=== PATIENT | female | born 1955 | race Caucasian/White ===

== ENCOUNTER 2020-07-15 14:35 | Emergency (ER) | payer OTHER, SELFPAY ==
--- NOTE | ~2020-07-15 | XR_ITS ---
EXAMINATION: XR foot LT min 3V EXAM DATE: 07/15/2020 14:55 INDICATION: foot pain started this a.m.no trauma/pain bi-lateral mid foot. TECHNIQUE: Left foot dorsoplantar, lateral and oblique projections obtained and reviewed. Comparison is made to prior examination from 08/04/2018. FINDINGS: Left metatarsal bones unremarkable. There are no acute fractures or dislocations identifi ed. There is no subcutaneous gas. The soft tissue is unremarkable. There are no radiopaque foreig n bodies. IMPRESSION: 1. Unremarkable XR foot LT min 3V exam. Reviewed, dictated and finalized at location A. TACO
[2020-07-15 14:43] VITALS: BP 145/66; PULSE 77; RESP 18; TEMP 36.9; O2SAT 99
--- NOTE | 2020-07-15 14:47 | ED.LOWEXIN ---
HPI - Extremity Injury (Lower) General Chief Complaint: Extremity Injury, Lower Stated Complaint: left foot pain Time Seen by Provider: 07/15/20 14:47 Source: patient and RN notes reviewed History of Present Illness HPI Narrative: Patient is a 64-year-old female who presents the urgent care with complaints of left foot pain. Patient states that she walks daily and noticed that while she was walking this morning. Patient states that she did not walk last week due to having a pinched nerve in the left hip and thought maybe the pain was just from resuming her normal walking activity. Patient states that the pain initially started on the lateral aspect of the left foot and is now hurting on both sides of the foot. Patient denies of any known trauma, fall, injury. States that when the foot is elevated and iced the pain subsides. States that the weightbearing activity exacerbates the pain. Denies of any old injuries to the left lower extremity. No other acute complaints. No acute distress noted. Patient aware of the plan of care. Some parts of this dictation were generated by voice recognition software and may contain typographical and/or grammatical inaccuracies. Related Data Allergies Allergy/AdvReac Type Severity Reaction Status Date / Time codeine Allergy Unknown Vomiting Verified 07/15/20 15:06 nitrofurantoin Allergy Unknown Rash Verified 07/15/20 15:06 propoxyphene Allergy Unknown AGITATION Verified 07/15/20 15:06 Sulfa (Sulfonamide Allergy Unknown Rash Verified 07/15/20 15:06 Antibiotics) Decongestants Allergy Mild Unknown Uncoded 07/15/20 15:06 Review of Systems Review of Systems: Narrative: CONSTITUTIONAL: Denies fever, chills, or sweats. EYES: Denies visual changes, redness, or discharge. ENT: Denies rhinorrhea, congestion, sore throat, or otalgia. CARDIOVASCULAR: Denies chest pain, palpitations, or edema. RESPIRATORY: Denies cough or dyspnea. GASTROINTESTINAL: Denies abdominal pain, nausea, vomiting, or diarrhea. GENITOURINARY: Denies dysuria or hematuria. SKIN: Denies rash or itching. MUSCULOSKELETAL: Reports of left foot pain NEUROLOGIC: Denies headache, numbness, or weakness. All other systems reviewed are negative, except as documented in HPI. [facility] Past Medical History Medical History (Updated 07/15/20 @ 15:09 by GLEN Guaman) Colon cancer screening (~07/2019) Cologuard negative FH: diabetes mellitus Gastroesophageal reflux disease Sleep apnea Family History Family History (Updated 05/15/19 @ 09:47 by DOCTOR UNKNOWN) Father Diabetes mellitus Hypertension Family history of lung cancer Sibling Diabetes mellitus Grandparent Diabetes mellitus Mother Carcinoma of colon Other Family history of malignant neoplasm of breast Social History Social History Smoking status: Never smoker Alcohol intake: never Comments At the time of my signature, I reviewed and agree with the nursing past medical, surgical, social, and family history. There is no relevant family history pertinent to the patient complaint. Exam Narrative: Exam Narrative: GENERAL: This is a well-nourished, well-developed patient, in no apparent distress. HEAD: normocephalic, atraumatic. EYES: PERRL. Sclera clear/white. Vision is grossly intact. EARS: External ears normal NOSE: External nose normal with no obvious nasal discharge, nares without redness, no rhinorrhea. THROAT: Mucous membranes moist NECK: Neck supple SKIN: warm, intact with no suspicious lesions or rash, good texture and turgor. NEURO: awake, alert, and oriented to person, place and time. There were no obvious focal neurologic abnormalities. EXTREMITIES: No obvious deformity, edema, ecchymosis or erythema noted to the left lower extremity. Positive strong left pedal pulse with capillary refill less than 2 seconds. Range of motion to left lower extremity within normal limits. Pain exacerbated with weightbearing. Course Vital Signs Vital
== END 2020-07-15 15:14 | disposition home or self-care (01) ==
PROVIDERS: Emergency Provider Nurse Practitioner Family; PCP Family Medicine
DX: M79.672 Pain in left foot (principal); K21.9 Gastro-esophageal reflux disease without esophagitis; G47.30 Sleep apnea, unspecified
CPT/HCPCS: 73630; 99213; G0463

== ENCOUNTER 2020-08-26 09:04 | Outpatient (CLI) | payer OTHER, SELFPAY ==
--- NOTE | ~2020-08-26 | MM_ITS ---
EXAMINATION: MM screening donato BI w xena HISTORY: Screening TECHNIQUE: Craniocaudal and mediolateral oblique 3-D tomosynthesis images were obtained and synthetic 2-D images were generated. CAD analysis was submitted and interpreted. COMPARISON: Comparison to multiple prior studies sequentially, with oldest reviewed study dated 03/12. BREAST PARENCHYMAL COMPOSITION: There are scattered areas of fibroglandular density. FINDINGS: There is no evidence of suspicious mass, calcification, or architectural distortion to sugg est malignancy in either breast. There has been no suspicious interval change. IMPRESSION: 1. No mammographic evidence of malignancy. 2. Recommend routine screening mammography in one year. BI-RADS Category 1: Negative Reviewed, dictated and finalized at location A. ANCE EQUIPMENT WORKER
== END 2020-08-26 09:05 | disposition home or self-care (01) ==
PROVIDERS: PCP Family Medicine; Visit Provider Obstetrics & Gynecology
DX: Z12.31 Encounter for screening mammogram for malignant neoplasm of breast (principal)
CPT/HCPCS: 77063; 77067

== ENCOUNTER → 2020-09-30 11:08 | Outpatient (CLI) | payer OTHER, SELFPAY ==
--- NOTE | ~2020-09-30 | XR_ITS ---
XR thoracic spine 3V DATE: 09/30/2020 11:38 INDICATION: Back pain TECHNIQUE: Standing AP and lateral and swimmer views COMPARISON: None FINDINGS: There is bilateral reverse S shaped scoliosis of the thoracic spine. Osteopenia. No fracture or bone destruction is evident. The thoracic pedicles appear intact. No paraspinal soft t issue thickening. IMPRESSION: Prominent reverse S-shaped thoracic scoliosis Osteopenia Reviewed, dictated and finalized at location A. ISTRY SPECIALIST
--- NOTE | ~2020-09-30 | XR_ITS ---
XR_CERV2-3V_CR DATE: 09/30/2020 11:38 INDICATION: Neck pain TECHNIQUE: AP, open-mouth, odontoid and lateral views COMPARISON: 10/01/2008 cervical spine FINDINGS: There is straightening of the cervical spine. C1 and C2 are normally aligned and the odontoid process is intact. No fracture or dislocation or locked facet or prevertebral soft tissue swelling. No other significant abnormality. IMPRESSION: Straightening of the cervical spine Reviewed, dictated and finalized at Location A. Reviewed, dictated and finalized at location A. OGY NURSE
--- NOTE | ~2020-09-30 | XR_ITS ---
XR lumbar spine 2-3V DATE: 09/30/2020 11:38 INDICATION: Back pain TECHNIQUE: Standing AP, lateral and coned lateral lumbosacral views COMPARISON: 10/19/2016 lumbar spine FINDINGS: There is prominent rotatory levoscoliosis of the lumbar spine. Diffuse osteopenia No fracture or bone destruction is evident. There is prominent degenerative disc disease and spurring consistent with multilevel degenerative di sc disease, particularly at L1-2, L2-3, L3-4 and on the left at L4-5. The sacroiliac joints appear normal. IMPRESSION: Prominent rotatory levoscoliosis and severe multilevel degenerative disc disease Diffuse osteopenia Reviewed, dictated and finalized at location A. R&D ENGINEER
== END ==
PROVIDERS: PCP Family Medicine; Visit Provider Physician Assistant
DX: M85.88 Other specified disorders of bone density and structure, other site (principal); M51.36 Other intervertebral disc degeneration, lumbar region
CPT/HCPCS: 72040; 72072; 72100

== ENCOUNTER → 2021-12-01 14:56 | Outpatient (CLI) | payer OTHER, SELFPAY ==
--- NOTE | ~2021-12-01 | XR_ITS ---
EXAM: XR abdomen/kub 1V HISTORY: R10.9 - Unspecified abdominal pain COMPARISON: 01/19/2012. FINDINGS: Clear lung bases. Normal bowel gas pattern. Significant lateral and rotatory lumbar scolio sis. No abnormal abdominal calcifications. Pelvic phleboliths. IMPRESSION: No obstruction or ileus. Reviewed, dictated and finalized at location K. IMPRESSION: No obstruction or ileus.
== END ==
PROVIDERS: PCP Family Medicine; Visit Provider Physician Assistant
DX: R10.9 Unspecified abdominal pain (principal)
CPT/HCPCS: 74018

== ENCOUNTER 2021-12-09 08:18 | Outpatient (CLI) | payer OTHER, SELFPAY ==
--- NOTE | ~2021-12-09 | MM_ITS ---
EXAMINATION: MM screening donato BI w xena HISTORY: Screening mammogram TECHNIQUE: Craniocaudal and mediolateral oblique 3-D tomosynthesis images were obtained and synthetic 2-D images were generated. CAD analysis was submitted and interpreted. COMPARISON: 08/26/2020, 05/19/2019, 03/18/2018 bilateral screening mammogram examinations BREAST PARENCHYMAL COMPOSITION: There are scattered areas of fibroglandular density. FINDINGS: There is no evidence of suspicious mass, calcification, or architectural distortion to sugg est malignancy in either breast. There has been no suspicious interval change. IMPRESSION: 1. No mammographic evidence of malignancy. 2. Recommend routine screening mammography in one year. BI-RADS Category 1: Negative Reviewed, dictated and finalized at location A.
== END 2021-12-09 08:19 | disposition home or self-care (01) ==
LOC: ANHIMG 08:19
PROVIDERS: PCP Family Medicine; Visit Provider Obstetrics & Gynecology
DX: Z12.31 Encounter for screening mammogram for malignant neoplasm of breast (principal)
CPT/HCPCS: 77063; 77067

== ENCOUNTER → 2022-03-18 07:45 | Outpatient (CLI) | payer SELFPAY ==
--- NOTE | ~2022-03-18 | CT_ITS ---
EXAMINATION: CT abdomen pelvis w con DATE: 03/18/2022 08:30 INDICATION: Abdominal pain, back pain for 6 months. TECHNIQUE: Computed tomography (CT) of the abdomen and pelvis was performed with 100 CC Omnipaque 350 intravenous contrast. Automated exposure control and iterative reconstruction technique were employe d. Exam dose: 818.30 mGy-cm total exam DLP. COMPARISON: 12/01/2021 KUB FINDINGS: The lung bases are clear of infiltrate or consolidation. Heart size is within normal range. No pericardial or pleural effusion. Small sliding hiatal hernia. Approximately 4.1 cm and two 4-5 mm right hepatic cysts. The liver, gallbladder, bile ducts, spleen a nd pancreas are otherwise unremarkable. The gallbladder is present. No gallbladder wall thickening or pericholecystic fluid or fat stranding. No bile duct or pancreatic duct dilatation. Approximately 6 x 10 mm hypoattenuating right adrenal lesion, likely a small right adrenal adenoma. No renal space occupying mass lesion or urinary tract calculus or hydroureteronephrosis. The urinary bladder is unremarkable. There are multiple uterine fibroids, some with calcification. Adnexal areas and ovaries are unremarkable. Normal caliber of the abdominal aorta. No intraperitoneal or retroperitoneal or pelvic mass lesion or adenopathy or ascites. Small fat-containing umbilical hernia. Normal appendix. No bowel obstruction, bowel wall thickening, pneumatosis or intraperitoneal free air . Rotatory levoscoliosis and multilevel degenerative disc disease of the lumbar spine. No suspicious os teolytic or osteoblastic lesions are noted. IMPRESSION: Hepatic cysts Small sliding hiatal hernia Probable 6 x 10 mm right adrenal adenoma uterine fibroids Reviewed, dictated and finalized at Location A. Reviewed, dictated and finalized at location B.
[2022-03-24 10:32] LABS: Estimated Glomerular Filt Rate > 60
== END ==
PROVIDERS: PCP Family Medicine; Visit Provider Physician Assistant Medical
DX: R10.12 Left upper quadrant pain (principal); R19.7 Diarrhea, unspecified; K44.9 Diaphragmatic hernia without obstruction or gangrene; D35.01 Benign neoplasm of right adrenal gland; D25.9 Leiomyoma of uterus, unspecified
CPT/HCPCS: 36415; 74177; 82565; Q9967

== ENCOUNTER 2022-04-09 01:24 | Day surgery (SDC) | payer OTHER, SELFPAY ==
[2022-04-01 17:11] VITALS: BMI 32.7
--- NOTE | 2022-04-01 17:32 | PC.NURSE ---
Report to the Outpatient Waiting Room, entrance under the green pavilion located off [facility], at time 1130 on date 04/09/22. OR Time: 1330_. - You and your visitor will be asked a series of questions to screen for COVID 19 for your protection. - Only one visitor is allowed at this time. - The patient visitor is requested to leave or wait in car when not with patient. - A mask is required within the hospital. Patients may have clear liquids (water, carbonated beverages, clear teas, apple juice) until 3 hours prior to surgery with a maximum of 20 ounces. - No food from midnight until time of surgery - Infants may have breast milk until 4 hours before surgery, formula 6 hours prior to surgery. - Children will be allowed to drink immediately following surgery. If applicable, please bring a bottle or sippy cup to assist with drinking. Juice, water, soda, and popsicles are readily available. For infants on formula, please bring formula the day of surgery. Pacifiers are allowed. Take the following medications with a SIP of water the morning of surgery: n/a_ Medications to discontinue per physician _vitamins Date to take last dose__04/06/22 Please no make-up, nail stateless, hairspray, perfume, deodorant, or body powder the day of surgery. No jewelry (including any body piercings) or valuables the day of surgery, leave them at home. Please take a shower or bath the night before, or the morning of, surgery with an antibacterial soap. Wear comfortable, loose fitting clothing. Children are encouraged to wear pajamas. - Jewelry must be removed prior to entering the operating room. Rings and piercings that are not removed may be cut off. - The hospital will not accept responsibility for valuables. - Please leave all valuables, including medications, at home the day of surgery. If you are going home after surgery, a licensed coach tour driver must drive you home. - NO public transportation without another adult. - We recommend that an adult stay with you for 24 hours following discharge. - We also recommend that you do not drive, make important decision, drink alcoholic beverages, or take any drugs that were not prescribed by your health care provider for at least 24 hours after your discharge time. For Pediatric surgeries, we recommend two adults accompany the child home (only one inside the building at this time). Follow any additional instructions given to you from your surgeon. If you or anyone in your household have experienced Covid symptoms in the past week, please notify your surgeon or the nurse liaison at the phone number below for possible testing. Telephone instructions given to Henrietta Ramsey_and asked if any additional questions and then verbalized understanding. Patient advised to call surgeon office or pre surgery nurse liaison [phone] if any additional questions.
[2022-04-09 12:45] VITALS: BP 133/74; PULSE 67; RESP 16; TEMP 36.7; O2SAT 100
[2022-04-09] MEDS: LACTATED RINGERS 1,000 ML 30 ML IV CONT ×2 (13:05→15:30)
--- NOTE | 2022-04-09 13:43 | WPDANESEPPF ---
Anes - Initial Pre Proc Eval Procedure: Operation Date: 04/09/22 14:30 Proposed Procedures p Excision Left Upper Back Mass - Papi Randolph MD Date/Time: 04/09/22 13:43 Surgeon: Papi Randolph MD Pre Op Diagnosis: upper back mass Patient Data Age: 66 Gender: F Height: 1.52 m Weight: 77.3 kg Last Vital Signs Temp 36.7 C 04/09/22 12:45 Pulse 67 04/09/22 12:45 Resp 16 04/09/22 12:45 BP 133/74 04/09/22 12:45 Pulse Ox 100 04/09/22 12:45 O2 Del Method Room Air 04/09/22 12:45 Allergies Allergy/AdvReac Type Severity Reaction Status Date / Time codeine Allergy Unknown Vomiting Verified 04/09/22 12:36 nitrofurantoin Allergy Unknown Rash Verified 04/09/22 12:36 propoxyphene Allergy Unknown AGITATION Verified 04/09/22 12:36 Sulfa (Sulfonamide Allergy Unknown Rash Verified 04/09/22 12:36 Antibiotics) Home Medications Medication Instructions Recorded Confirmed Type famotidine 20 mg tablet (Pepcid) 20 mg PO BID #180 tabs 06/18/21 04/09/22 Rx calcium carb 300 mg-D3 800 1 tablet PO DAILY 11/17/21 04/09/22 History unit-mag ox 25 mg-copper plate printer 0.5 mg-leti-Zn tablet (Caltrate + D3 Plus Minerals) magnesium 250 mg tablet 250 mg PO DAILY 11/17/21 04/09/22 History multivit with 1 tablet PO DAILY 11/17/21 04/09/22 History jxbjngay-mbzq-RS-lutein 8 mg iron-400 mcg-300 mcg tablet (Centrum Silver Women) estradiol-norethindrone acet 0.5 1 tablet PO DAILY 03/10/22 04/09/22 History mg-0.1 mg tablet Patient hx anesthesia problems: none Family hx anesthesia problems: none Results Review: All pre-operative results and documents have been reviewed as part of the pre-operative evaluation. [facility] Past Medical History Medical History (Updated 04/09/22 @ 13:46 by Brett Lopez DO) Colon cancer screening (~07/2019) Cologuard negative Diarrhea Gastroesophageal reflux disease Headache Hot flashes Insomnia, unspecified Left upper quadrant abdominal pain Localized edema Mass of subcutaneous tissue of back Other fatigue Surgical History Surgical History H/O breast biopsy H/O section Family History Family History Father Diabetes mellitus Hypertension Family history of lung cancer Sibling Diabetes mellitus Carcinoma of colon Grandparent Diabetes mellitus Mother Carcinoma of colon Rheumatoid arthritis Grandparent Breast cancer Sibling Carcinoma of colon Diabetes mellitus Other Family history of malignant neoplasm of breast Social History Social History Smoking status: Never smoker Alcohol intake: never Substance use: never Substance use type: does not use Living arrangements: with family Gender identity (if verbalized by the patient): Female Sexual Orientation (if Verbalized by the Patient): Straight or Heterosexual Spiritual care concerns: No Anes - Eval Final PreProcedure Day of Procedure 04/09/22 13:43 Patient weight: obese Heart: regular rate and rhythm Lungs: clear to auscultation Airway: Mallampati scale class II Neurological: alert and oriented Last oral intake: >/= 8 hours ASA classification: II Emergent: no Anesthetic plan: proceed Anesthesia type and monitoring: general GIVS and standard monitoring Results Review: All pre-operative results and documents have been reviewed as part of the pre-operative evaluation. Informed Consent: The patient's anesthetic plan and its attendant risks and benefits were discussed with the patient/family/POA. Questions were solicited and answers provided to the satisfaction of the patient/family/POA.
--- NOTE | 2022-04-09 14:01 | WPDHPUPDATE1 ---
History and Physical Update Update Date/Time: 04/09/22 14:01 History and Physical has been reviewed, including an updated exam of the patient. There are NO changes in the patient's condition. Risks, benefits, and alternatives have been discussed and questions answered. Patient agrees to proceed with procedure.
[2022-04-09] MEDS: ceFAZolin 2 GM/D5W 50 ML 2 GM/50 ML BAG IVPB (14:33)
[2022-04-09] MEDS: BUPIVACAINE/EPINEPHRINE 0.25% 50 ML VIAL INFILTRATE (15:03)
[2022-04-09 15:30] VITALS: BP 128/61; PULSE 82; RESP 14; TEMP 36.4; O2SAT 100
--- NOTE | 2022-04-09 15:33 | P.OP_ITS ---
Procedure Note - Detailed Date of Procedure 04/09/22 Pre-op Diagnosis upper back mass Post-op Diagnosis Other (Skin lesion left upper back) Procedure Performed Excision 4 cm skin lesion of the back with 2 mm margins (4.4 cm excision); 15 cm layered closure Surgeon Papi Randolph MD Yard Warehouse Worker Chari CARRA, juancarlos bobby COKE DRAWER HAND Anesthesia General (G IV S) and Local (0.25% Marcaine with epinephrine) Indications Patient had a red skin mole on the left upper back which subsequently enlarged and then turned brown. It is in a position where it is occasionally painful and gets irritated by clothing. She is taken to surgery now for excision Findings Lesion measured 4 cm x 3 cm, excision was 15 cm in length. Lesion did not extend into the subcutaneous. Description of Procedure Patient was checked in the preoperative holding area. The area of the lesion was marked on the skin as well as the proposed incision. She was then taken to surgery and placed in right lateral decubitus position. The left upper back was prepped and draped. The area of the ellipse to excise the lesion was remarked on the skin. Local was infiltrated into the area of the anticipated excision and in the subcutaneous tissues. A thorough infiltration with local was carried out. I then excised the lesion along the lines that I had drawn previously. This included 2 mm of normal skin on each side of the lesion. We then dissected through the entire dermis and dissected and removed the lesion taking a small amount of subcutaneous with the specimen. The wound was then made hemostatic with the cautery. I then undermined the subcutaneous a both the upper and lower margin of the wound so that the wound could be closed with less tension. This was done with the cautery. Hemostasis was again achieved. I then closed the wound with subcutaneous interrupted 3-0 Vicryl suture followed by subcuticular interrupted 3-0 Vicryl suture. The skin was finally closed with a running 4-0 Monocryl skin suture. The wound was dressed with Exofin surgical adhesive. Patient was then awakened and taken to recovery in good condition. Sponge and needle counts were correct x2. Estimated Blood Loss -10 Drains No Packing No Pathology Yes (Skin lesion left upper back) Complications No immediate complications Condition Stable Disposition PACU [facility] Billing Surgery - Charge Forward: Surgery Billing (Excision 4 cm skin lesion of the back with 2 mm margins, 4.4 cm excision. 15 cm layered closure.)
[2022-04-09 15:45] VITALS: BP 111/70; PULSE 76; RESP 16; O2SAT 98
[2022-04-09 16:00] VITALS: BP 127/63; PULSE 66; RESP 16
[2022-04-09 16:30] VITALS: BP 120/70; PULSE 65; RESP 16
== END 2022-04-09 16:47 | disposition home or self-care (01) ==
PROVIDERS: PCP Family Medicine; Visit Provider Surgery
PROC: (CPT 64788; principal; 2022-04-09 14:30)
DX: D36.10 Benign neoplasm of peripheral nerves and autonomic nervous system, unspecified (principal); K21.9 Gastro-esophageal reflux disease without esophagitis; E66.9 Obesity, unspecified; Z68.33 Body mass index [BMI] 33.0-33.9, adult
CPT/HCPCS: 64788; 88304; 88342; J0131; J0690; J2250; J2405; J2704; J3010; J7120

== ENCOUNTER 2022-04-10 19:19 | Emergency (ER) | payer OTHER, SELFPAY ==
--- NOTE | 2022-04-10 19:24 | ED.GENADULT ---
HPI - General Adult General Chief complaint: Eye Problems Stated complaint: Bilateral Eye Time Seen by Provider: 04/10/22 19:24 History of Present Illness HPI narrative: Henrietta Corona is a 66 yo female with PMH GERD, whpo comes to express care 1 day post op for eye problem after excision of mass, L upper back. She had an ET tube placed and states has been coughing and is hoarse. She was told by the surgeon that she aspirated a little but it was not severe and is not complaining medication except for ketorolac patient came because she has what appears to be blood pooling in both eyes and she was concerned about what that was and if it was a complication of her surgery Related Data Home Medications Medication Instructions Recorded Confirmed calcium carb 300 mg-D3 800 1 tablet PO DAILY 11/17/21 04/10/22 unit-mag ox 25 mg-copying machine repairer 0.5 mg-leti-Zn tablet (Caltrate + D3 Plus Minerals) magnesium 250 mg tablet 250 mg PO DAILY 11/17/21 04/10/22 multivit with 1 tablet PO DAILY 11/17/21 04/10/22 gklibvfs-gisr-WG-lutein 8 mg iron-400 mcg-300 mcg tablet (Centrum Silver Women) estradiol-norethindrone acet 0.5 1 tablet PO DAILY 03/10/22 04/10/22 mg-0.1 mg tablet Allergies Allergy/AdvReac Type Severity Reaction Status Date / Time codeine Allergy Unknown Vomiting Verified 04/10/22 19:23 nitrofurantoin Allergy Unknown Rash Verified 04/10/22 19:23 propoxyphene Allergy Unknown AGITATION Verified 04/10/22 19:23 Sulfa (Sulfonamide Allergy Unknown Rash Verified 04/10/22 19:23 Antibiotics) Review of Systems Review of Systems: CONSTITUTIONAL: Denies fever, chills, sweats. EYES: Denies visual changes, redness bilateral sclera both eyes, discharge. ENT: Denies rhinorrhea, congestion, sore throat, otalgia. CARDIOVASCULAR: Denies chest pain, palpitations, edema. RESPIRATORY: Denies dyspnea, wheezing, cough GASTROINTESTINAL: Denies abdominal pain, nausea, vomiting, diarrhea. GENITOURINARY: Denies dysuria, hematuria, abnormal discharge SKIN: Denies rash or itching. NEUROLOGIC: Denies numbness, or focal weakness. PSYCHIATRIC: Denies anxiety or depression. [facility] Past Medical History Medical History Colon cancer screening (~07/2019) Cologuard negative Diarrhea Gastroesophageal reflux disease Headache Hot flashes Insomnia, unspecified Left upper quadrant abdominal pain Localized edema Mass of subcutaneous tissue of back Other fatigue Surgical History Surgical History H/O breast biopsy H/O section Family History Family History Father Diabetes mellitus Hypertension Family history of lung cancer Sibling Diabetes mellitus Carcinoma of colon Grandparent Diabetes mellitus Mother Carcinoma of colon Rheumatoid arthritis Grandparent Breast cancer Sibling Carcinoma of colon Diabetes mellitus Other Family history of malignant neoplasm of breast Social History Social History Smoking status: Never smoker Alcohol intake: never Substance use: never Substance use type: does not use Gender identity (if verbalized by the patient): Female Sexual Orientation (if Verbalized by the Patient): Straight or Heterosexual Spiritual care concerns: No Comments At time of signature, I agree with nursing past medical, surgical, social and family history. There is no relevant family history pertinent to the presenting complaint. Exam Narrative: GENERAL: This is a well-nourished, well-developed patient, in mild distress. HEAD: normocephalic, atraumatic. EYES: PERRL. Sclera clear/red lower sclera injection Vision is grossly intact. EARS: External ears normal, . Hearing grossly intact. NOSE: External nose normal without nasal discharge, nares without redness, no rhin
[2022-04-10 19:27] VITALS: BP 134/77; PULSE 73; RESP 18; TEMP 36.9; O2SAT 98
== END 2022-04-10 19:36 | disposition home or self-care (01) ==
PROVIDERS: Emergency Provider Nurse Practitioner; PCP Family Medicine
DX: H11.33 Conjunctival hemorrhage, bilateral (principal); K21.9 Gastro-esophageal reflux disease without esophagitis
CPT/HCPCS: 99212; G0463

== ENCOUNTER → 2022-10-05 11:38 | Outpatient (CLI) | payer MEDICARE, OTHER, SELFPAY ==
--- NOTE | ~2022-10-05 | CT_ITS ---
Non-contrast CT scan of the Abdomen Clinical indication: Adrenal adenoma Technique: 5 mm axial scans were obtained through the abdomen without intravenous or oral contrast. Dose reduction technique was used on this scan by utilizing automated exposure control and iterative reconstruction technique. The dose-length product (DLP) was 433.95 mGy-cm. COMPARISON: 03/18/2022 Findings: Images through the lung bases reveal no abnormalities. Stable hepatic cyst. The spleen, pancreas, gallbladder, kidneys, and adrenal gland appear normal. 1 c m low-density right adrenal nodule is consistent with adenoma. There is no aortic aneurysm. Visualized bowel loops are unremarkable. No ascites. Impression: 1 cm right adrenal adenoma. Stable hepatic cyst. Reviewed, dictated and finalized at location . [employer]TENANCE Impression: 1 cm right adrenal adenoma. Stable hepatic cyst.
== END ==
PROVIDERS: PCP Family Medicine; Visit Provider Family Medicine
DX: D35.01 Benign neoplasm of right adrenal gland (principal); K76.89 Other specified diseases of liver
CPT/HCPCS: 74150

== ENCOUNTER → 2023-01-21 14:21 | Outpatient (CLI) | payer MEDICARE, OTHER, SELFPAY ==
--- NOTE | ~2023-01-21 | XR_ITS ---
EXAMINATION: XR chest 2V 01/21/2023 14:47 INDICATION: Shortness of breath PROCEDURE: 2 view chest COMPARISON: 10/19/2016 FINDINGS: The lungs are clear. The cardiomediastinal silhouette is within normal limits. There are no pleural effusions. There is no pneumothorax suspected. There is scoliosis. IMPRESSION: 1: NO ACUTE CARDIOPULMONARY DISEASE. Reviewed, dictated and finalized at location L.
--- NOTE | ~2023-01-21 | XR_ITS ---
XR hip RT min 3V w AP pelvis 01/21/2023 14:47 Indication: Hip pain. Procedure: AP pelvis and 2 views right hip Comparison: 09/14/2016 Findings: Pelvic rings are intact. There is lower lumbar spondylosis. Sacral foramen are symmetric. T here is mild osteoarthritis of the hips. No soft tissue abnormality. No foreign bodies. Impression: 1: Mild osteoarthritis of the hips. Reviewed, dictated and finalized at location L. Impression: 1: Mild osteoarthritis of the hips.
== END ==
PROVIDERS: PCP Family Medicine; Visit Provider Physician Assistant
DX: R06.02 Shortness of breath (principal); M25.559 Pain in unspecified hip; M16.0 Bilateral primary osteoarthritis of hip
CPT/HCPCS: 71046; 73502

== ENCOUNTER 2023-02-02 12:41 | Emergency (ER) | payer MEDICARE, OTHER, SELFPAY ==
--- NOTE | ~2023-02-02 | XR_ITS ---
EXAMINATION: XR finger 4th LT min 2V DATE: 02/02/2023 13:06 INDICATION: Left hand fourth digit pain. Fall. TECHNIQUE: 4 views of left hand fourth digit were obtained. COMPARISON: None. FINDINGS: Bone alignment is normal. No fracture. There is mild osteoarthritis of fourth proximal inte rphalangeal joint. There is soft tissue swelling around fourth proximal interphalangeal joint. IMPRESSION: 1. No fracture. Reviewed, dictated and finalized at location A. IMPRESSION: 1. No fracture.
--- NOTE | 2023-02-02 12:47 | ED.UPPEXIN ---
HPI - Extremity Injury (Upper) General Chief Complaint: Extremity Injury, Upper Stated Complaint: fall/finger injury Time Seen by Provider: 02/02/23 12:47 Source: patient Mode of arrival: ambulatory Limitations: no limitations History of Present Illness HPI narrative: Patient is a 67 year old female that fell yesterday onto obtained. Has been icing and elevating with no relief. Patient states left ring finger has been swelling and had to go have ring removed. patient states she had immediate relief pain and pressure when rings were removed. patient also reports mild numbness and tingling to tip of finger. Denies the finger feeling cold. Still able to move finger but decreased range of motion. Denies hitting head on fall Related Data Home Medications Medication Instructions Recorded Confirmed estradiol-norethindrone acet 0.5 1 tablet PO DAILY 03/10/22 02/02/23 mg-0.1 mg tablet Allergies Allergy/AdvReac Type Severity Reaction Status Date / Time codeine AdvReac Intermediate Vomiting Verified 02/02/23 13:10 propoxyphene AdvReac Intermediate AGITATION Verified 02/02/23 13:10 nitrofurantoin AdvReac Mild Rash Verified 02/02/23 13:10 Sulfa (Sulfonamide AdvReac Mild Rash Verified 02/02/23 13:10 Antibiotics) Review of Systems Review of Systems: All systems reviewed & are unremarkable except as noted in HPI and below Constitutional: Constitutional: Denies body ache(s), Denies chills, Denies fatigue, Denies fever(s), Denies headache(s), Denies malaise and Denies weakness Eyes: Eyes: Denies blurry vision, Denies irritation and Denies loss of vision ENT: Denies otalgia, Denies headache(s), Denies nasal discharge, Denies sinus pain and Denies sore throat Cardiovascular: Cardiovascular: Denies chest pain, Denies irregular heart rhythm and Denies dyspnea Respiratory: Respiratory: Denies dyspnea Gastrointestinal: Gastrointestinal: Denies abdominal pain, Denies melena, Denies hematochezia, Denies diarrhea, Denies nausea and Denies vomiting Musculoskeletal: Musculoskeletal: Denies back pain, Denies myalgias, Reports arthralgias and Reports joint swelling Integumentary/Breasts: Skin/Breast: Denies pruritus and Denies rash Neurologic: Denies headache(s), Denies loss of vision and Denies weakness Psychiatric: Psychiatric: Reports no additional psychiatric complaints Endocrine: Endocrine: Denies fatigue PMFSH Past Medical History Medical History Colon cancer screening (~07/2019) Cologuard negative Diarrhea Early satiety Epigastric pain Family history of colon cancer Gastroesophageal reflux disease GERD (gastroesophageal reflux disease) Headache Hiatal hernia Hiatal hernia Hot flashes Insomnia, unspecified Left upper quadrant abdominal pain Localized edema Mass of subcutaneous tissue of back Other fatigue Personal history of colonic polyps Surgical History Surgical History H/O breast biopsy H/O section History of surgical removal of skin lesion Excision 4 cm skin lesion of the back with 2 mm margins (4.4 cm excision); 15 cm layered closure 04/09/22 Family History Family History Father Diabetes mellitus Hypertension Family history of lung cancer Sibling Diabetes mellitus Carcinoma of colon Grandparent Diabetes mellitus Mother Carcinoma of colon Rheumatoid arthritis Grandparent Breast cancer Sibling Carcinoma of colon Diabetes mellitus Other Family history of malignant neoplasm of breast Social History Social History Smoking status: Never smoker Alcohol intake: never Substance use: never Substance use type: does not use Living arrangements: with family Occupation/Education: retired Gender identity (if verbalized by the patien
[2023-02-02 12:55] VITALS: BP 149/73; PULSE 77; RESP 16; TEMP 36.4; O2SAT 100
== END 2023-02-02 13:34 | disposition home or self-care (01) ==
PROVIDERS: Emergency Provider Nurse Practitioner Family; PCP Family Medicine
DX: S63.615A Unspecified sprain of left ring finger, initial encounter (principal); X58.XXXA Exposure to other specified factors, initial encounter; K21.9 Gastro-esophageal reflux disease without esophagitis
CPT/HCPCS: 73140; 99213; G0463

== ENCOUNTER 2023-03-23 01:29 | Day surgery (SDC) | payer MEDICARE, OTHER, SELFPAY ==
[2022-12-08 08:52] VITALS: BMI 33.3
[2023-03-10 14:25] VITALS: BMI 33.3
[2023-03-23 06:20] VITALS: BP 148/81; PULSE 66; RESP 20; TEMP 36.3; O2SAT 100
[2023-03-23] MEDS: LACTATED RINGERS 1,000 ML 150 ML IV CONT (06:32)
--- NOTE | 2023-03-23 07:19 | WPDANESEPPF ---
Anes - Initial Pre Proc Eval Procedure: Operation Date: 03/23/23 07:30 Proposed Procedures p Esophagogastroduodenoscopy & Colonoscopy - Chon Gallardo MD Date/Time: 03/23/23 07:19 Surgeon: Chon Gallardo MD Pre Op Diagnosis: GERD, diaphragmatic Hernia w/o obstruction Patient Data Age: 67 Gender: F Height: 1.52 m Weight: 78.8 kg Last Vital Signs Temp 97.4 F L 03/23/23 06:20 Pulse 66 03/23/23 06:20 Resp 20 03/23/23 06:20 BP 148/81 H 03/23/23 06:20 Pulse Ox 100 03/23/23 06:20 O2 Del Method Room Air 03/23/23 06:20 Allergies Allergy/AdvReac Type Severity Reaction Status Date / Time codeine AdvReac Intermediate Vomiting Verified 03/23/23 06:19 propoxyphene AdvReac Intermediate AGITATION Verified 03/23/23 06:19 nitrofurantoin AdvReac Mild Rash Verified 03/23/23 06:19 Sulfa (Sulfonamide AdvReac Mild Rash Verified 03/23/23 06:19 Antibiotics) Home Medications Medication Instructions Recorded Confirmed Type estradiol-norethindrone acet 0.5 1 tablet PO DAILY 03/10/22 03/10/23 History mg-0.1 mg tablet omeprazole 40 mg capsule,delayed 40 mg PO DAILY #90 caps 11/26/22 03/10/23 Rx release Patient hx anesthesia problems: none Family hx anesthesia problems: none Results Review: All pre-operative results and documents have been reviewed as part of the pre-operative evaluation. [facility] Past Medical History Medical History Colon cancer screening (~07/2019) Cologuard negative Diarrhea Early satiety Epigastric pain Family history of colon cancer Gastroesophageal reflux disease GERD (gastroesophageal reflux disease) Headache Hiatal hernia Hiatal hernia Hot flashes Insomnia, unspecified Left upper quadrant abdominal pain Localized edema Mass of subcutaneous tissue of back Other fatigue Personal history of colonic polyps Surgical History Surgical History H/O breast biopsy H/O section History of surgical removal of skin lesion Excision 4 cm skin lesion of the back with 2 mm margins (4.4 cm excision); 15 cm layered closure 04/09/22 Family History Family History (Reviewed 02/11/23 @ 09:55 by Michelle Colunga [facility]) Father Diabetes mellitus Hypertension Family history of lung cancer Sibling Diabetes mellitus Carcinoma of colon Grandparent Diabetes mellitus Mother Carcinoma of colon Rheumatoid arthritis Grandparent Breast cancer Sibling Carcinoma of colon Diabetes mellitus Other Family history of malignant neoplasm of breast Social History Social History (Reviewed 02/11/23 @ 09:55 by Michelle Colunga [facility]) Smoking status: Never smoker Alcohol intake: never Substance use: never Substance use type: does not use Living arrangements: with family Occupation/Education: retired Gender identity (if verbalized by the patient): Female Sexual Orientation (if Verbalized by the Patient): Straight or Heterosexual Spiritual care concerns: No Anes - Eval Final PreProcedure Day of Procedure 03/23/23 07:19 Patient weight: obese Heart: regular rate and rhythm Lungs: clear to auscultation Neurological: alert and oriented Last oral intake: >/= 8 hours ASA classification: II Emergent: no Anesthetic plan: proceed Anesthesia type and monitoring: general GIVS and standard monitoring Results Review: All pre-operative results and documents have been reviewed as part of the pre-operative evaluation. Informed Consent: The patient's anesthetic plan and its attendant risks and benefits were discussed with the patient/family/POA. Questions were solicited and answers provided to the satisfaction of the patient/family/POA.
--- NOTE | 2023-03-23 07:32 | PM.HPGS ---
History of Present Illness History of Present Illness Consent: Risks, benefits, and alternatives have been discussed and questions answered. Patient agrees to proceed with procedure. Chief complaint: GERD, diaphragmatic Hernia w/o obstruction Narrative: Henrietta Ramsey is a 67 year old female here for egd and colonoscopy, h/o longstanding gerd better after using omeprazole 40mg daily instead of pepcid but if she eats too much then will get symptomatic, also imaging in the past showed sliding hiatal hernia and never had EGD. Had colonoscopy with polyp removed in 2006, family history of colon cancer (mother and sister), negative cologuard 2019 Review of Systems Constitutional: Constitutional: Denies headache(s) and Denies weakness Eyes: Eyes: Denies blurry vision ENT: Reports Normal hearing present, Denies headache(s) and Denies neck pain Cardiovascular: Cardiovascular: Denies chest pain and Denies dyspnea Respiratory: Respiratory: Denies dyspnea Gastrointestinal: Gastrointestinal: Reports no additional gastrointestinal complaints Genitourinary: Genitourinary: Denies dysuria Musculoskeletal: Musculoskeletal: Denies neck pain Integumentary/Breasts: Skin/Breast: Denies dry skin Neurologic: Reports Normal hearing present, Denies headache(s) and Denies weakness Psychiatric: Psychiatric: Denies anxiety Endocrine: Endocrine: Denies change in body appearance Hematologic/Lymphatic: Hematologic/Lymphatic: Denies easy bleeding Allergic/Immunologic: Allergic/Immunologic: Denies urticaria PMFSH Past Medical History Medical History Colon cancer screening (~07/2019) Cologuard negative Diarrhea Early satiety Epigastric pain Family history of colon cancer Gastroesophageal reflux disease GERD (gastroesophageal reflux disease) Headache Hiatal hernia Hiatal hernia Hot flashes Insomnia, unspecified Left upper quadrant abdominal pain Localized edema Mass of subcutaneous tissue of back Other fatigue Personal history of colonic polyps Surgical History Surgical History H/O breast biopsy H/O section History of surgical removal of skin lesion Excision 4 cm skin lesion of the back with 2 mm margins (4.4 cm excision); 15 cm layered closure 04/09/22 Family History Family History Father Diabetes mellitus Hypertension Family history of lung cancer Sibling Diabetes mellitus Carcinoma of colon Grandparent Diabetes mellitus Mother Carcinoma of colon Rheumatoid arthritis Grandparent Breast cancer Sibling Carcinoma of colon Diabetes mellitus Other Family history of malignant neoplasm of breast Social History Social History Smoking status: Never smoker Alcohol intake: never Substance use: never Substance use type: does not use Living arrangements: with family Occupation/Education: retired Gender identity (if verbalized by the patient): Female Sexual Orientation (if Verbalized by the Patient): Straight or Heterosexual Spiritual care concerns: No Meds Home Medications and Allergies Home Medications Medication Instructions Recorded Confirmed Type estradiol-norethindrone acet 0.5 1 tablet PO DAILY 03/10/22 03/10/23 History mg-0.1 mg tablet omeprazole 40 mg capsule,delayed 40 mg PO DAILY #90 caps 11/26/22 03/10/23 Rx release Allergies Allergy/AdvReac Type Severity Reaction Status Date / Time codeine AdvReac Intermediate Vomiting Verified 03/23/23 06:19 propoxyphene AdvReac Intermediate AGITATION Verified 03/23/23 06:19 nitrofurantoin AdvReac Mild Rash Verified 03/23/23 06:19 Sulfa (Sulfonamide AdvReac Mild Rash Verified 03/23/23 06:19 Antibiotics) Vital Signs Vital Signs - 24 hr 03/23/23 06:20 Temperature 9
--- NOTE | 2023-03-23 07:48 | SUR.OPER ---
EGD ended 742 colonoscopy started 747
[2023-03-23 08:06] VITALS: BP 112/41; PULSE 67; RESP 19; O2SAT 99
[2023-03-23 08:21] VITALS: BP 113/65; PULSE 65; RESP 19; O2SAT 98
[2023-03-23 08:25] VITALS: BP 120/59; PULSE 60; RESP 15; O2SAT 98
== END 2023-03-23 08:34 | disposition home or self-care (01) ==
PROVIDERS: PCP Family Medicine; Visit Provider Internal Medicine Gastroenterology
PROC: 0DJ08ZZ Inspection of Upper Intestinal Tract, Via Natural or Artificial Opening Endoscopic (ICD-10-PCS; CPT 43235; principal; 2023-03-23 07:30)
DX: Z12.11 Encounter for screening for malignant neoplasm of colon (principal); D12.5 Benign neoplasm of sigmoid colon; K62.1 Rectal polyp; K64.8 Other hemorrhoids; Z80.0 Family history of malignant neoplasm of digestive organs; K22.70 Barrett's esophagus without dysplasia; K44.9 Diaphragmatic hernia without obstruction or gangrene; K21.9 Gastro-esophageal reflux disease without esophagitis; E66.9 Obesity, unspecified; Z68.33 Body mass index [BMI] 33.0-33.9, adult
CPT/HCPCS: 45380; 45385; 43239; 88305; J2704; J7120

== ENCOUNTER 2023-05-11 08:08 | Outpatient (CLI) | payer MEDICARE, OTHER, SELFPAY ==
--- NOTE | ~2023-05-11 | MM_ITS ---
EXAMINATION: MM screening donato BI w xena HISTORY: Screening mammogram TECHNIQUE: Craniocaudal and mediolateral oblique 3-D tomosynthesis images were obtained and synthetic 2-D images were generated. CAD analysis was submitted and interpreted. COMPARISON: 12/09/2021, 08/26/2020 BREAST PARENCHYMAL COMPOSITION:There are scattered areas of fibroglandular density. FINDINGS: No suspicious mass, calcification, or architectural distortion are identified in either leann ast to suggest malignancy. There has been no suspicious interval change. IMPRESSION: No mammographic evidence of malignancy. Recommend routine screening mammography in one year. BI-RADS Category 1: Negative Reviewed, dictated and finalized at location .
== END 2023-05-11 08:09 | disposition home or self-care (01) ==
PROVIDERS: PCP Family Medicine; Visit Provider Obstetrics & Gynecology
DX: Z12.31 Encounter for screening mammogram for malignant neoplasm of breast (principal)
CPT/HCPCS: 77063; 77067

== ENCOUNTER → 2023-06-10 14:58 | Outpatient (CLI) | payer MEDICARE, OTHER, SELFPAY ==
--- NOTE | ~2023-06-10 | MR_ITS ---
EXAMINATION: MR hip RT wo con DATE: 06/10/2023 15:49 INDICATION: Right hip pain. TECHNIQUE: Magnetic resonance imaging (MRI) of the right hip was performed without intravenous contra st. COMPARISON: Right hip radiographs 05/12/2023 FINDINGS: Bones/cartilage: There is lumbar levoscoliosis and moderate spondylosis. No fracture. The femoral head/neck morphologi es are normal. There is mild osteoarthritis of the hips. Small [id number] images of right hip demo nstrate partial-thickness cartilage loss and tiny osteophytes. Labrum: There is a tear of the right acetabular labrum. Fluid: There is no hip joint effusion. There is mild bilateral trochanteric bursitis. Soft tissues: There is mild right gluteus minimus tendinopathy. The gluteus medius tendon is normal. Left gluteus m inimus tendon is normal. There is mild left gluteus medius tendinopathy. There is mild tendinopathy o f the hamstring origins bilaterally. The iliopsoas tendons are normal. IMPRESSION: 1. Mild osteoarthritis of the hips. Reviewed, dictated and finalized at location A.
== END ==
PROVIDERS: PCP Family Medicine; Visit Provider Orthopaedic Surgery
DX: M16.0 Bilateral primary osteoarthritis of hip (principal)
CPT/HCPCS: 73721

== ENCOUNTER 2023-09-05 22:24 | Emergency (ER) | payer MEDICARE, OTHER, SELFPAY ==
--- NOTE | ~2023-09-05 | CT_ITS ---
Non-contrast Head CT History: Headache Technique: Axial non-contrast imaging of the brain was performed. Dose reduction technique was used on this scan by utilizing automated exposure control and iterative reconstruction technique. The dose -length product (DLP) was 605.33 mGy-cm. Findings: There is no evidence of intracranial hemorrhage, mass lesion, or acute infarct. Brain par enchyma appears normal. The ventricles and subarachnoid spaces are normal in size. The calvarium ap pears normal. The visualized paranasal sinuses and mastoid air cells are clear. Impression: No significant abnormality seen. Reviewed, dictated and finalized at location . [employer] Impression: No significant abnormality seen.
[2023-09-05 22:29] VITALS: BP 168/74; PULSE 73; RESP 14; TEMP 36.4; O2SAT 99
[2023-09-06] VITALS (16 sets, daily range): BP systolic 129–147; BP diastolic 70–86; PULSE 57–82; RESP 11–24; O2SAT 96–100
[2023-09-06 02:06] LABS: Basophils Percent Auto 0.6 % (0.2-1.2); Eosinophils Absolute Auto 0.1 K/mm3 (0-0.3); Eosinophils Percent Auto 1.5 % (0-4.4); Hematocrit 42.7 % (37.0-47.0); Hemoglobin 13.9 g/dL (12.0-15.0); Immature Granulocyte Absolute 0.02 K/mm3 (0.00-0.031); Immature Granulocyte Percent A 0.3 % (0-0.5); Lymphocytes Absolute Auto 1.77 K/mm3 (0.9-3.2); Mean Corpuscular HGB Conc 32.6 g/dl (32-36); Mean Platelet Volume 10.5 fl (7.4-10.4); Monocytes Absolute Auto 0.4 K/mm3 (0.1-0.6); Monocytes Percent Auto 6.6 % (2.6-8.5); Neutrophils Absolute Auto 4.2 K/mm3 (1.3-6.7); Platelet Count Result 253 k/mm3 (150-375); Red Blood Count 4.64 M/mm3 (4.2-5.4); Red Cell Distribution Width 12.4 % (11.5-14.5); White Blood Count 6.6 K/mm3 (4.5-10.0)
[2023-09-06 02:17] LABS: Alanine Aminotransferase 22 U/L (6-35); Albumin Level 3.9 g/dL (3.5-5.1); Alkaline Phosphatase 60 U/L (38-126); Anion Gap 8 mmol/L (8-16); Aspartate Amino Transferase 23 U/L (14-36); Bilirubin,Total 0.7 mg/dL (0.2-1.3); Blood Urea Nitrogen 15 mg/dL (7-17); Calcium 9.8 mg/dL (8.4-10.2); Carbon Dioxide 24 mmol/L (22-30); Chloride 107 mmol/L (98-107); Estimated CRCL calculation 64 ml/min; Estimated Glomerular Filt Rate > 60; Glucose 116 mg/dL (65-110); Sodium 139 mmol/L (137-145)
[2023-09-06] MEDS: KETOROLAC 30 MG/ML VIAL (*BKC) 15 MG IV PUSH (03:20)
[2023-09-06] MEDS: diphenhydrAMINE HCl INJ 50 MG/ML VIAL IV PUSH (03:20)
[2023-09-06] MEDS: PROCHLORPERAZINE EDISYLATE 10 MG/2 ML VIAL IV PUSH (03:20)
[2023-09-06] MEDS: SODIUM CHLORIDE 0.9% IV 1,000 ML 999 ML IV CONT (03:20)
[2023-09-06] MEDS: diphenhydrAMINE HCl INJ 50 MG/ML VIAL (04:08)
--- NOTE | 2023-09-06 04:10 | PC.NURSE ---
CT CALLED THIS RN TO INFORM RN THAT PT WAS HAVING A REACTION TO WHATEVER MEDS SHE WAS GIVEN STATED BY THE PT. THIS RN ASSESSED PT WHEN PT WAS BROUGHT BACK TO THE ROOM. PT STATED HER SYMPTOMS WERE THE ROOM IS SPINNING, I AM FEELING RESTLESS, AND I AM HAVING TINGLING IN MY TONGUE . THIS RN MADE EDP DR. FERRELL AWARE OF PT SYMPTOMS. EDP DR. FERRELL ASSESSED PT AND VERBALLY ORDERED BENADRYL IV 25MG FOR PT. THIS RN USED CLOSED LOOP COMMUNICATION TO VERIFY ROUTE/ DOSE/ MEDICATION/ AND PT WITH EDP. EDP CONFIRMED.
--- NOTE | 2023-09-06 04:13 | PC.NURSE ---
Addendum entered by Rosita Garcia RN 09/06/23 04:14: PT WAS NOTED TO NOT HAVE ANY FACIAL/ TONGUE SWELLING, DIFFICULTY BREATHING, PULSE OX WAS 98%, PT WAS AO X 4 AND ABLE TO SPEAK CLEAR AND CONCISE SENTENCES. Original Note: THIS RN REASSESSED PT AFTER PT STATED SHE WAS HAVING A REACTION TO WHATEVER MEDS WERE GIVEN DURING HER CT SCAN. PT STATED SHE WAS FEELING BETTER BUT STILL FELT SLIGHTLY ANXIOUS .
--- NOTE | 2023-09-06 04:42 | ED.GENADULT ---
HPI - General Adult General Chief complaint: Headache Stated complaint: headache Time Seen by Provider: 09/06/23 03:01 History of Present Illness HPI narrative: Patient is a 68-year-old female presents emergency department with chief complaint of headache. Patient reports this afternoon she started having pain in the occipital region of her scalp. The patient reports her blood pressure was elevated in the 170s at home and patient reports that she normally does not have high blood pressure the patient denies visual changes denies focal or neurological deficits does report she had COVID over the . Related Data Home Medications Medication Instructions Recorded Confirmed estradiol-norethindrone acet 0.5 1 tablet PO DAILY 03/10/22 06/25/23 mg-0.1 mg tablet Allergies Allergy/AdvReac Type Severity Reaction Status Date / Time codeine AdvReac Intermediate Vomiting Verified 09/06/23 01:52 propoxyphene AdvReac Intermediate AGITATION Verified 09/06/23 01:52 nitrofurantoin AdvReac Mild Rash Verified 09/06/23 01:52 Sulfa (Sulfonamide AdvReac Mild Rash Verified 09/06/23 01:52 Antibiotics) Review of Systems Review of Systems: A 10 system review of systems was completed on the patient and is negative except for what is stated in the HPI. Nursing and ancillary documentation was reviewed. [facility] Past Medical History Medical History Colon cancer screening (~07/2019) Cologuard negative Diarrhea Early satiety Epigastric pain Family history of colon cancer Gastroesophageal reflux disease GERD (gastroesophageal reflux disease) Headache Hiatal hernia Hiatal hernia Hot flashes Insomnia, unspecified Left upper quadrant abdominal pain Localized edema Mass of subcutaneous tissue of back Other fatigue Personal history of colonic polyps Surgical History Surgical History H/O breast biopsy H/O section History of surgical removal of skin lesion Excision 4 cm skin lesion of the back with 2 mm margins (4.4 cm excision); 15 cm layered closure 04/09/22 Family History Family History Father Diabetes mellitus Hypertension Family history of lung cancer Sibling Diabetes mellitus Carcinoma of colon Grandparent Diabetes mellitus Mother Carcinoma of colon Rheumatoid arthritis Grandparent Breast cancer Sibling Carcinoma of colon Diabetes mellitus Other Family history of malignant neoplasm of breast Social History Social History Smoking status: Never smoker Second hand tobacco smoke exposure: No Alcohol intake: never Substance use: never Substance use type: does not use Current Housing: Decline to Answer Concerned About Future Housing: Decline to Answer Difficulty Paying Gas/Electric Bills: Decline to Answer Difficulty Paying for Meds: Decline to Answer Currently Unemployed: Decline to Answer Difficulty w/ Childcare or Family Care: Decline to Answer Living arrangements: with family Occupation/Education: retired Gender identity (if verbalized by the patient): Female Sexual Orientation (if Verbalized by the Patient): Straight or Heterosexual Spiritual care concerns: No Agree to blood products: Yes Exam Narrative: GENERAL: Well-appearing, well-nourished, and in no acute distress. HEAD: Normocephalic, atraumatic. EYES: PERRLA and EOMI. ENT: Nares clear, no rhinorrhea or epistaxis. Mucous membranes moist. NECK: Supple. CHEST: Clear to auscultation. No respiratory distress. HEART: Regular rate and rhythm. No murmur heard. Normal peripheral pulses. ABDOMEN: Soft, nontender, nondistended, normal active bowel sounds. EXTREMITIES: Normal range of motion. No edema. SKIN: Warm, dry, no rash. NEURO: No f
--- NOTE | 2023-09-06 05:46 | PC.NURSE ---
EDP DR. FERRELL VERBALIZED PT NEEDED TO AMBULATE TO SEE HOW PT IS DOING. THIS RN AMBULATED PT.
== END 2023-09-06 06:20 | disposition home or self-care (01) ==
PROVIDERS: Emergency Provider Emergency Medicine; PCP Family Medicine
DX: R51.9 Headache, unspecified (principal)
CPT/HCPCS: 36415; 70450; 80053; 85025; 96361; 96374; 96375; 99284; J0780; J1200; J1885; J7030

== ENCOUNTER 2024-01-12 11:52 | Outpatient (CLI) | payer MEDICARE, OTHER, SELFPAY ==
--- NOTE | ~2024-01-12 | MMUS_ITS ---
EXAMINATION: MM diagnostic donato LT w xena, US breast LT complete HISTORY: Left breast pain, nipple retraction for 7 weeks TECHNIQUE: Full field and spot ML, MLO and CC 3-D tomosynthesis images of the left breast were perfor med and synthetic 2-D images were generated. CAD analysis was submitted and interpreted. High resolut ion complete left breast ultrasound examination including all 4 quadrants and subareolar area was per formed. COMPARISON: 05/11/2023, 12/09/2021, 08/26/2020 bilateral screening mammogram examinations BREAST PARENCHYMAL COMPOSITION: There are scattered areas of fibroglandular density. FINDINGS: MAMMOGRAPHIC FINDINGS: There is suggestion of an approximate 6 mm complicated mass with minimal internal vascularity on colo r flow imaging, in the subareolar area. There is nipple retraction. No suspicious mass or architectural distortion, malignant calcification, skin thickening or retractio n of the left breast is noted otherwise. ULTRASOUND: 12:00 3 cm from the nipple, there is suggestion of a 4.8 x 7.7 x 9 mm hypoechoic area at 12:00 3 cm f rom the nipple associated with a long probable duct filled with soft tissue density. The duct measure s up to 3.6 mm diameter. At 1:00 near the nipple there is an approximately 1 x 1.1 x 1.3 cm complex lesion with some internal vascularity. 3:00 3 cm from nipple: 3.2 mm probable benign cyst Small probable cysts seen at 5:00 and 7:00. 9:00: 2.8 mm probable cyst IMPRESSION: 1. Indeterminate masses at 12:00 3 cm from the nipple and at 1:00 near the nipple 2. Ultrasound-guided biopsy of these areas is recommended. BI-RADS category 4, suspicious findings. Dr. Freeman telephoned the report and ultrasound guided biopsy recommendations on 01/12/2024 at [address] Mayito Amezcuas MShe Shrestha Reviewed, dictated and finalized at location A. IMPRESSION: 1. Indeterminate masses at 12:00 3 cm from the nipple and at 1:00 near the nipp le 2. Ultrasound-guided biopsy of these areas is recommended. BI-RADS category 4, suspicious findings. Dr. Freeman telephoned the report and ultrasound guided biopsy recommendations on 01/12/2024 at [address] Mayito Collins's Kevon Shrestha
== END 2024-01-12 11:53 | disposition home or self-care (01) ==
LOC: ANHIMG 11:54
PROVIDERS: PCP Family Medicine; Visit Provider Obstetrics & Gynecology
DX: N64.53 Retraction of nipple (principal); N64.4 Mastodynia; R92.8 Other abnormal and inconclusive findings on diagnostic imaging of breast
CPT/HCPCS: 76641; 77061; 77065; G0279

== ENCOUNTER 2024-05-15 07:56 | Outpatient (CLI) | payer MEDICARE, OTHER, SELFPAY ==
--- NOTE | ~2024-05-15 | NM_ITS ---
EXAMINATION: NM stress w perf spect multi DATE: 05/15/2024 10:22 INDICATION: Chest pain. TECHNIQUE: Rest images were obtained following intravenous administration of 10.5 mCi Tc99m tetrofosm in (Myoview). The patient performed an exercise activity. At peak exercise, 34.0 mCi Tc99m tetrofosmi n (Myoview) was administered intravenously, and stress images were obtained. Data was reconstructed i nto short axis and horizontal and vertical long axis SPECT images. Gated SPECT images were also obtai sinan. COMPARISON: None. FINDINGS: There is no definite reversible or fixed perfusion abnormality to suggest ischemia or infar ction. There is no segmental wall motion abnormality. Left ventricular ejection fraction measures > 70%. IMPRESSION: 1. No definite ischemia or infarct. 2. Normal left ventricular ejection fraction measuring >70%. Reviewed, dictated and finalized at location A.
--- NOTE | 2024-05-15 07:59 | EST_ITS ---
Patient Info Name: Henrietta Corona Age: 68 years : 1955 Gender: Female Ht: 60 in Wt: 179 lbs BSA: 1.89 m2 HR: 81 bpm BP: 146 / 86 mmHg Exam Date: 05/15/2024 8:53 AM Exam Location: Echo Lab Patient Status: Outpatient Admit Date: 05/15/2024 Staff Ordering Physician: Suad Blake MD Attending Provider: Suad Blake MD Exercise Technologist: Funmi Bauman [facility] Exercise Physician: Chan Wallace DO Exam Type: CA stress test treadmill w NM Study Info A nuclear stress test was performed. Summary 1. 1. Negative Jatinder exercise stress test for ischemic ST changes by ECG criteria. 2. 2. Reduced functional capacity, achieving 7 METs of workload. 3. 3. Baseline hypertension. 4. 4. Appropriate HR response to exercise. 5. 5. Appropriate HR recovery at 1 minute post exercise. 6. 6. Nuclear scan to follow and will be reported separately. Please correlate with it. 7. 7. Patient informed of the above results. Protocol: Jatinder Stress ECG Details Stage: REST Duration (min): 6 min : 19 sec Speed (mph): 0.0 Grade (%): 0 HR (bpm): 70 SBP (mmHg): 146 DBP (mmHg): 86 METS: --- Stage: REST Duration (min): 23 min : 55 sec Speed (mph): 0.0 Grade (%): 0 HR (bpm): 72 SBP (mmHg): 146 DBP (mmHg): 86 METS: --- Stage: STAGE 1 Duration (min): 1 min : 0 sec Speed (mph): 1.7 Grade (%): 10 HR (bpm): 104 SBP (mmHg): 146 DBP (mmHg): 86 METS: --- Stage: STAGE 1 Duration (min): 2 min : 0 sec Speed (mph): 1.7 Grade (%): 10 HR (bpm): 112 SBP (mmHg): 146 DBP (mmHg): 86 METS: --- Stage: STAGE 1 Duration (min): 3 min : 0 sec Speed (mph): 1.7 Grade (%): 10 HR (bpm): 120 SBP (mmHg): 154 DBP (mmHg): 65 METS: --- Stage: STAGE 2 Duration (min): 1 min : 0 sec Speed (mph): 2.5 Grade (%): 12 HR (bpm): 126 SBP (mmHg): 154 DBP (mmHg): 65 METS: --- Stage: STAGE 2 Duration (min): 2 min : 0 sec Speed (mph): 2.5 Grade (%): 12 HR (bpm): 131 SBP (mmHg): 153 DBP (mmHg): 64 METS: --- Stage: STAGE 2 Duration (min): 2 min : 1 sec Speed (mph): 2.5 Grade (%): 12 HR (bpm): 131 SBP (mmHg): 153 DBP (mmHg): 64 METS: --- Stage: RECOVERY Duration (min): 0 min : 58 sec Speed (mph): 0.0 Grade (%): 0 HR (bpm): 111 SBP (mmHg): 153 DBP (mmHg): 64 METS: --- Stage: RECOVERY Duration (min): 1 min : 58 sec Speed (mph): 0.0 Grade (%): 0 HR (bpm): 92 SBP (mmHg): 153 DBP (mmHg): 64 METS: --- Stage: RECOVERY Duration (min): 2 min : 58 sec Speed (mph): 0.0 Grade (%): 0 HR (bpm): 84 SBP (mmHg): 153 DBP (mmHg): 81 METS: --- Stage: RECOVERY Duration (min): 3 min : 13 sec Speed (mph): 0.0 Grade (%): 0 HR (bpm): 84 SBP (mmHg): 153 DBP (mmHg): 81 METS: --- Rest HR: 72 bpm Peak HR: 131 bpm Rest Sys BP: 146 mmHg Peak Sys BP: 154 mmHg Max Pred HR: 154 bpm % Max Pred HR: 85 % Target HR: 131 bpm Max RPP: 20,1
== END 2024-05-15 07:57 | disposition home or self-care (01) ==
PROVIDERS: PCP Family Medicine; Visit Provider Family Medicine
DX: R07.9 Chest pain, unspecified (principal)
CPT/HCPCS: 78452; 93017; A9502

== ENCOUNTER 2024-06-14 01:54 | Day surgery (SDC) | payer MEDICARE, OTHER, SELFPAY ==
[2024-05-26 13:19] VITALS: BMI 35.3
--- NOTE | 2024-06-13 17:19 | P.PNAN_ITS ---
Anes - Eval Pre Procedure Procedure: Operation Date: 06/14/24 07:30 Proposed Procedures p Esophagogastroduodenoscopy - Chon Gallardo MD Date/Time: 06/13/24 17:19 Pre Op Diagnosis: Pozo's esophagus Patient Data Age: 68 Gender: F Height: 1.52 m Weight: 82 kg Allergies Allergy/AdvReac Type Severity Reaction Status Date / Time codeine AdvReac Intermediate Vomiting Verified 05/26/24 13:09 propoxyphene AdvReac Intermediate AGITATION Verified 05/26/24 13:09 nitrofurantoin AdvReac Mild Rash Verified 05/26/24 13:09 Sulfa (Sulfonamide AdvReac Mild Rash Verified 05/26/24 13:09 Antibiotics) Home Medications Medication Instructions Recorded Confirmed Type omeprazole 40 mg capsule,delayed 40 mg PO DAILY #90 caps 05/18/24 05/26/24 Rx release Patient hx anesthesia problems: none Family hx anesthesia problems: none Results Review: All pre-operative results and documents have been reviewed as part of the pre- operative evaluation. [facility] Past Medical History Medical History Colon cancer screening (~07/2019) Cologuard negative Diarrhea Early satiety Epigastric pain Family history of colon cancer Gastroesophageal reflux disease GERD (gastroesophageal reflux disease) Headache Hiatal hernia Hiatal hernia Hot flashes Insomnia, unspecified Left upper quadrant abdominal pain Localized edema Mass of subcutaneous tissue of back Normal chest CT Other fatigue Personal history of colonic polyps Surgical History Surgical History H/O breast biopsy H/O section H/O left breast biopsy History of surgical removal of skin lesion Excision 4 cm skin lesion of the back with 2 mm margins (4.4 cm excision); 15 cm layered closure 04/09/22 Family History Family History Father Diabetes mellitus Hypertension Family history of lung cancer Sibling Diabetes mellitus Carcinoma of colon Grandparent Diabetes mellitus Mother Carcinoma of colon Rheumatoid arthritis Grandparent Breast cancer Sibling Carcinoma of colon Diabetes mellitus Other Family history of malignant neoplasm of breast Social History Social History Smoking status: Never smoker Second hand tobacco smoke exposure: No Alcohol intake: never Substance use: never Substance use type: does not use Current Housing: Decline to Answer Concerned About Future Housing: Decline to Answer Difficulty Paying Gas/Electric Bills: Decline to Answer Difficulty Paying for Meds: Decline to Answer Currently Unemployed: Decline to Answer Difficulty w/ Childcare or Family Care: Decline to Answer Living arrangements: with family Occupation/Education: retired Gender identity (if verbalized by the patient): Female Sexual Orientation (if Verbalized by the Patient): Straight or Heterosexual Spiritual care concerns: No Agree to blood products: Yes Exam Day of Procedure 06/13/24 17:19 Patient weight: overweight
[2024-06-14 06:18] VITALS: BP 152/75; PULSE 67; RESP 18; TEMP 35.7; O2SAT 100; BMI 35.6
[2024-06-14] MEDS: LACTATED RINGERS 1,000 ML 150 ML IV CONT (06:43)
--- NOTE | 2024-06-14 07:24 | WPDANESEPPF ---
Anes - Initial Pre Proc Eval Procedure: Operation Date: 06/14/24 07:30 Proposed Procedures p Esophagogastroduodenoscopy - Chon Gallardo MD Date/Time: 06/14/24 07:24 Surgeon: Chon Gallardo MD Pre Op Diagnosis: Pozo's esophagus Patient Data Age: 68 Gender: F Height: 1.52 m Weight: 82.7 kg Last Vital Signs Temp 96.2 F L 06/14/24 06:18 Pulse 67 06/14/24 06:18 Resp 18 06/14/24 06:18 BP 152/75 H 06/14/24 06:18 Pulse Ox 100 06/14/24 06:18 O2 Del Method Room Air 06/14/24 06:18 Allergies Allergy/AdvReac Type Severity Reaction Status Date / Time codeine AdvReac Intermediate Vomiting Verified 06/14/24 06:28 propoxyphene AdvReac Intermediate AGITATION Verified 06/14/24 06:28 nitrofurantoin AdvReac Mild Rash Verified 06/14/24 06:28 Sulfa (Sulfonamide AdvReac Mild Rash Verified 06/14/24 06:28 Antibiotics) Home Medications Medication Instructions Recorded Confirmed Type omeprazole 40 mg capsule,delayed 40 mg PO DAILY #90 caps 05/18/24 06/14/24 Rx release Patient hx anesthesia problems: none Family hx anesthesia problems: none Results Review: All pre-operative results and documents have been reviewed as part of the pre-operative evaluation. [facility] Past Medical History Medical History Colon cancer screening (~07/2019) Cologuard negative Diarrhea Early satiety Epigastric pain Family history of colon cancer Gastroesophageal reflux disease GERD (gastroesophageal reflux disease) Headache Hiatal hernia Hiatal hernia Hot flashes Insomnia, unspecified Left upper quadrant abdominal pain Localized edema Mass of subcutaneous tissue of back Normal chest CT Other fatigue Personal history of colonic polyps Surgical History Surgical History H/O breast biopsy H/O section H/O left breast biopsy History of surgical removal of skin lesion Excision 4 cm skin lesion of the back with 2 mm margins (4.4 cm excision); 15 cm layered closure 04/09/22 Family History Family History Father Diabetes mellitus Hypertension Family history of lung cancer Sibling Diabetes mellitus Carcinoma of colon Grandparent Diabetes mellitus Mother Carcinoma of colon Rheumatoid arthritis Grandparent Breast cancer Sibling Carcinoma of colon Diabetes mellitus Other Family history of malignant neoplasm of breast Social History Social History Smoking status: Never smoker Second hand tobacco smoke exposure: No Alcohol intake: never Substance use: never Substance use type: does not use Current Housing: Decline to Answer Concerned About Future Housing: Decline to Answer Difficulty Paying Gas/Electric Bills: Decline to Answer Difficulty Paying for Meds: Decline to Answer Currently Unemployed: Decline to Answer Difficulty w/ Childcare or Family Care: Decline to Answer Living arrangements: with family Occupation/Education: retired Gender identity (if verbalized by the patient): Female Sexual Orientation (if Verbalized by the Patient): Straight or Heterosexual Spiritual care concerns: No Agree to blood products: Yes Anes - Eval Final PreProcedure Day of Procedure 06/14/24 07:24 Patient weight: obese Heart: regular rate and rhythm Lungs: clear to auscultation Airway: Mallampati scale class II Neurological: alert and oriented Last oral intake: >/= 8 hours ASA classification: II Emergent: no Anesthetic plan: proceed Anesthesia type and monitoring: general GIVS and standard monitoring Results Review: All pre-operative results and documents have been reviewed as part of the pre-operative evaluation. Informed Consent: The patient's anesthetic plan and its attendant risks and benefits
--- NOTE | 2024-06-14 07:31 | P.PNAN_ITS ---
Anes - Eval Final PreProcedure Day of Procedure 06/14/24 07:31 Patient weight: obese Heart: regular rate and rhythm Lungs: clear to auscultation Airway: Mallampati scale class II Neurological: alert and oriented Last oral intake: >/= 8 hours ASA classification: II Emergent: no Anesthetic plan: proceed Anesthesia type and monitoring: general GIVS and standard monitoring Results Review: All pre-operative results and documents have been reviewed as part of the pre- operative evaluation. Informed Consent: The patient's anesthetic plan and its attendant risks and benefits were discussed with the patient/family/POA. Questions were solicited and answers provided to the satisfaction of the patient/family/POA.
--- NOTE | 2024-06-14 07:31 | PM.HPGS ---
History of Present Illness History of Present Illness Consent: Risks, benefits, and alternatives have been discussed and questions answered. Patient agrees to proceed with procedure. 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, using ppi daily Review of Systems Review of Systems: All systems reviewed & are unremarkable except as noted in HPI and below PMFSH Past Medical History Medical History (Updated 06/14/24 @ 07:32 by Chon Gallardo MD) Deleon esophagus Colon cancer screening (~07/2019) Cologuard negative Diarrhea Early satiety Epigastric pain Family history of colon cancer Gastroesophageal reflux disease GERD (gastroesophageal reflux disease) Headache Hiatal hernia Hiatal hernia Hot flashes Insomnia, unspecified Left upper quadrant abdominal pain Localized edema Mass of subcutaneous tissue of back Normal chest CT Other fatigue Personal history of colonic polyps Surgical History Surgical History H/O breast biopsy H/O section H/O left breast biopsy History of surgical removal of skin lesion Excision 4 cm skin lesion of the back with 2 mm margins (4.4 cm excision); 15 cm layered closure 04/09/22 Family History Family History Father Diabetes mellitus Hypertension Family history of lung cancer Sibling Diabetes mellitus Carcinoma of colon Grandparent Diabetes mellitus Mother Carcinoma of colon Rheumatoid arthritis Grandparent Breast cancer Sibling Carcinoma of colon Diabetes mellitus Other Family history of malignant neoplasm of breast Social History Social History Smoking status: Never smoker Second hand tobacco smoke exposure: No Alcohol intake: never Substance use: never Substance use type: does not use Current Housing: Decline to Answer Concerned About Future Housing: Decline to Answer Difficulty Paying Gas/Electric Bills: Decline to Answer Difficulty Paying for Meds: Decline to Answer Currently Unemployed: Decline to Answer Difficulty w/ Childcare or Family Care: Decline to Answer Living arrangements: with family Occupation/Education: retired Gender identity (if verbalized by the patient): Female Sexual Orientation (if Verbalized by the Patient): Straight or Heterosexual Spiritual care concerns: No Agree to blood products: Yes Meds Home Medications and Allergies Home Medications Medication Instructions Recorded Confirmed Type omeprazole 40 mg capsule,delayed 40 mg PO DAILY #90 caps 05/18/24 06/14/24 Rx release Allergies Allergy/AdvReac Type Severity Reaction Status Date / Time codeine AdvReac Intermediate Vomiting Verified 06/14/24 06:28 propoxyphene AdvReac Intermediate AGITATION Verified 06/14/24 06:28 nitrofurantoin AdvReac Mild Rash Verified 06/14/24 06:28 Sulfa (Sulfonamide AdvReac Mild Rash Verified 06/14/24 06:28 Antibiotics) Vital Signs Vital Signs - 24 hr 06/14/24 06:18 Temperature 96.2 F L Pulse Rate 67 Respiratory Rate 18 Blood Pressure 152/75 H Pulse Oximetry 100 Oxygen Delivery Room Air Exam Const: General: comfortable and no acute distress HENMT: Face/Nose/Sinus: Normal nares present Eyes: General: appearance normal, both eyes and all related structures Neck: Neck: no JVD Resp: Auscultation: clear to auscultation bilaterally Cardio: Rate: regular rate Rhythm: regular rhythm GI: Inspection: non-distended GI Palp: Yes Soft to palpation Skin: General skin exam: normal color Neuro: General: gait normal Speech: normal speech Extrem: General: normal to inspection Psych: Mental Status: mental status grossly normal Assessment and Plan Assessment and plan (1) 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
[2024-06-14 07:43] VITALS: BP 109/52; PULSE 81; RESP 22; O2SAT 94
[2024-06-14 07:53] VITALS: BP 101/37; PULSE 68; RESP 18; O2SAT 95
[2024-06-14 08:03] VITALS: BP 102/68; PULSE 64; RESP 15; O2SAT 98
[2024-06-14 08:13] VITALS: BP 126/83; PULSE 70; RESP 18; O2SAT 100
== END 2024-06-14 08:25 | disposition home or self-care (01) ==
PROVIDERS: PCP Family Medicine; Visit Provider Internal Medicine Gastroenterology
PROC: 0DJ08ZZ Inspection of Upper Intestinal Tract, Via Natural or Artificial Opening Endoscopic (ICD-10-PCS; CPT 43235; principal; 2024-06-14 07:30)
DX: K22.70 Barrett's esophagus without dysplasia (principal); K44.9 Diaphragmatic hernia without obstruction or gangrene; K29.50 Unspecified chronic gastritis without bleeding; K21.9 Gastro-esophageal reflux disease without esophagitis; G47.00 Insomnia, unspecified; E66.9 Obesity, unspecified; Z68.35 Body mass index [BMI] 35.0-35.9, adult; Z98.890 Other specified postprocedural states; Z86.0100 Personal history of colon polyps, unspecified; Z80.0 Family history of malignant neoplasm of digestive organs; Z80.3 Family history of malignant neoplasm of breast; Z80.1 Family history of malignant neoplasm of trachea, bronchus and lung
CPT/HCPCS: 43239; 88305; J2003; J2704; J7120

== ENCOUNTER 2024-06-17 09:37 | Emergency (ER) | payer MEDICARE, OTHER, SELFPAY ==
[2024-06-17 09:47] VITALS: BP 143/82; PULSE 68; RESP 16; TEMP 36.7; O2SAT 100
[2024-06-17 09:54] VITALS: BP 143/82; PULSE 68; RESP 16; TEMP 36.7; O2SAT 100
--- NOTE | 2024-06-17 10:25 | ED.GENADULT ---
HPI - General Adult General Chief complaint: Unspecified Stated complaint: Blood Pressure Problems Time Seen by Provider: 06/17/24 09:56 Source: patient, family (Has been) and RN notes reviewed Mode of arrival: ambulatory Limitations: no limitations History of Present Illness HPI narrative: Patient presents today complaining of elevated blood pressure. After she woke up this morning she felt her heart beat in her ears and took her blood pressure which was 164/94. After relaxing in her recliner for a while she took it again and it was 145/86. She is also feeling that her head is ?swimming. ? She is unable to describe what this feels like but denies any other symptoms to include dizziness, lightheadedness, nausea or vomiting, chest pain or shortness of breath, vision changes, numbness or tingling in the extremities, weakness, unsteady on her feet, recent URI symptoms. Patient does not take any blood pressure medications and has never been diagnosed with hypertension. States her normal blood pressure is 140s over 60s. Related Data Allergies Allergy/AdvReac Type Severity Reaction Status Date / Time codeine AdvReac Intermediate Vomiting Verified 06/14/24 06:28 propoxyphene AdvReac Intermediate AGITATION Verified 06/14/24 06:28 nitrofurantoin AdvReac Mild Rash Verified 06/14/24 06:28 Sulfa (Sulfonamide AdvReac Mild Rash Verified 06/14/24 06:28 Antibiotics) Review of Systems Review of Systems: CONSTITUTIONAL: Denies body aches, fever, chills, or sweats. EYES: Denies visual changes, redness, or discharge. ENT: Denies rhinorrhea, congestion, sore throat, or otalgia. CARDIOVASCULAR: Denies chest pain, palpitations, or edema. RESPIRATORY: Denies cough or dyspnea. GASTROINTESTINAL: Denies abdominal pain, nausea, vomiting, or diarrhea. GENITOURINARY: Denies dysuria or hematuria. SKIN: Denies rash, itching, or wounds. MUSCULOSKELETAL: Denies back pain, joint pain, or myalgia. NEUROLOGIC: Denies headache, numbness, tingling, or weakness. PSYCH: Denies depression or anxiety. [facility] Past Medical History Medical History Pozo esophagus Colon cancer screening (~07/2019) Cologuard negative Diarrhea Early satiety Epigastric pain Family history of colon cancer Gastroesophageal reflux disease GERD (gastroesophageal reflux disease) Headache Hiatal hernia Hiatal hernia Hot flashes Insomnia, unspecified Left upper quadrant abdominal pain Localized edema Mass of subcutaneous tissue of back Normal chest CT Other fatigue Personal history of colonic polyps Surgical History Surgical History H/O breast biopsy H/O section H/O left breast biopsy History of surgical removal of skin lesion Excision 4 cm skin lesion of the back with 2 mm margins (4.4 cm excision); 15 cm layered closure 04/09/22 Family History Family History Father Diabetes mellitus Hypertension Family history of lung cancer Sibling Diabetes mellitus Carcinoma of colon Grandparent Diabetes mellitus Mother Carcinoma of colon Rheumatoid arthritis Grandparent Breast cancer Sibling Carcinoma of colon Diabetes mellitus Other Family history of malignant neoplasm of breast Social History Social History Smoking status: Never smoker Second hand tobacco smoke exposure: No Alcohol intake: never Substance use: never Substance use type: does not use Current Housing: Decline to Answer Concerned About Future Housing: Decline to Answer Difficulty Paying Gas/Electric Bills: Decline to Answer Difficulty Paying for Meds: Decline to Answer Currently Unemployed: Decline to Answer Difficulty w/ Childcare or Family Care: Decline to Answer Living arrangements: with family Occupation/Education:
== END 2024-06-17 10:32 | disposition home or self-care (01) ==
PROVIDERS: Emergency Provider Nurse Practitioner; PCP Family Medicine
DX: R42 Dizziness and giddiness (principal); K22.70 Barrett's esophagus without dysplasia; K21.9 Gastro-esophageal reflux disease without esophagitis
CPT/HCPCS: 99211; G0463

== ENCOUNTER 2024-08-17 12:39 | Outpatient (CLI) | payer MEDICARE, OTHER, SELFPAY ==
--- NOTE | 2024-08-18 15:55 | WPDSIXMINUTE ---
Six Minute Walk Procedure Procedure Performed Pulmonary Stress Test (6 min walk) Six Minute Walk Six Minute Walk: This is a 6 minute walk test. The test was performed and interpreted in accordance with the 2014 ERS/ATS task force guidelines. Findings: The patient's resting room air oxygen saturation measured by pulse oximetry was 98%, the heart rate was 83 bpm, and the modified Ermelinda dyspnea score was 0. Patient ambulated for 396 meters and oxygen saturation remained 95 to 97%. At the end of the study the heart rate was 127 bpm and the modified Ermelinda dyspnea score was 2 to 3. The patient did not qualify for supplemental oxygen at rest or with ambulation. There are no prior studies for comparison.
--- NOTE | 2024-08-18 15:56 | WPDPFTINT ---
PFT Procedure Performed PFT Procedure Performed Spirometry with Pre/Post Bronchodilator Plethysmography (Lung Vol) Diffusing Cap (DLCO) Flow Vol Loop PFT Interpretation This is a pulmonary function test with pre and post-bronchodilator spirometry, plethysmography and diffusing capacity. The test was performed and results interpreted in accordance with the 2019 and 2005 ATS/ERS Task Force guidelines respectively using the Global Lung Function Initiative-2012 reference equations. Patient demonstrated good effort and cooperation. Reproducibility criteria were met. The quality of the pre bronchodilator spirometry maneuver was Grade A and post bronchodilator spirometry maneuver was Grade A. Findings: Spirometry: The contour the inspiratory and expiratory flow tracing are normal. The pre bronchodilator FVC is 2.29 L, 89% predicted. The pre bronchodilator FEV1 is 1.74 L, 86% predicted. The pre bronchodilator FEV1: FVC ratio 76%. The post bronchodilator FVC is 2.52 L, representing a 10% increase. The post bronchodilator FEV1 is 2.00 L, representing a 15% increase. The post bronchodilator FEV1: FVC ratio 79%. Plethysmography: The total lung capacity is 3.96 L, 89% predicted. The functional residual capacity is 1.92 L, 77% predicted. The residual volume is 1.58 L, 83% predicted. Diffusing capacity: The diffusing capacity unadjusted for hemoglobin and carboxyhemoglobin is 11.6, 60% predicted. The diffusing capacity adjusted for alveolar volume is 3.43, 76% predicted. Impression: The spirometry is normal without evidence of an obstructive abnormality. There is significant improvement after inhaling a single dose of albuterol. The lung volumes are normal. The diffusing capacity unadjusted for hemoglobin and carboxyhemoglobin is moderately decreased and normalizes when adjusted for alveolar volume. There are no prior studies for comparison
== END 2024-08-17 12:40 | disposition home or self-care (01) ==
LOC: ANHPFT 12:40
PROVIDERS: PCP Family Medicine; Visit Provider Internal Medicine Critical Care Medicine
DX: R06.00 Dyspnea, unspecified (principal)
CPT/HCPCS: 94060; 94618; 94726; 94729

== ENCOUNTER 2025-02-14 12:50 | Outpatient (CLI) | payer MEDICARE, OTHER, SELFPAY ==
--- NOTE | ~2025-02-14 | XR_ITS ---
3 VIEWS THORACIC SPINE Ordering provider: Arelis Cruz PA-C History: . M54.2 - Cervicalgia . Comparison: None. FINDINGS: VERTEBRAL BODIES: Kyphosis centered in the lower thoracic area. Compression fracture is seen in the l ower thoracic area.. Otherwise, Normal height and alignment. No visible fracture or subluxation. Levo scoliosis seen in the lumbar area. DISK SPACES: Narrowing of the disc spaces in the lower thoracic area. SOFT TISSUES: Normal. IMPRESSION: Severe kyphosis with compression fracture in the lower thoracic area most likely chronic. MRI is bett er for evaluation. Multilevel degenerative disc disease. Reviewed, dictated and finalized at location A. IMPRESSION: Severe kyphosis with compression fracture in the lower thoracic area most likel y chronic. MRI is better for evaluation. Multilevel degenerative disc disease.
--- NOTE | ~2025-02-14 | XR_ITS ---
Lumbosacral Spine: AP and lateral views Clinical History: Pain COMPARISON: 09/30/2020 Findings: Stable severe levoscoliosis, apex at L2. Moderate to advanced degenerative disc change thro ughout the lumbar spine is present. There is severe facet arthropathy throughout the lumbar spine. Th e sacroiliac joints are normally outlined. Impression: Stable severe levoscoliosis with associated severe diffuse degenerative spondylitic changes in the magda mbar spine. Reviewed, dictated and finalized at location M. Impression: Stable severe levoscoliosis with associated severe diffuse degenerative spondyl itic changes in the lumbar spine.
--- NOTE | ~2025-02-14 | XR_ITS ---
[id number] Ordering provider: Arelis Cruz PA-C History: . M54.2 - Cervicalgia . Comparison: October 04, 2020 FINDINGS: VERTEBRAL BODIES: Normal height and alignment. No visible fracture or subluxation. The dens is intact . DISK SPACES: Slight narrowing of the C5-C6 disc space.. Uncovertebral joint osteoarthritic changes of the same level. PARASPINOUS SOFT TISSUES: No prevertebral soft tissue swelling. IMPRESSION: No acute osseous abnormality cervical spine. Narrowing of the disc C5-C6. Reviewed, dictated and finalized at location A.
== END 2025-02-14 12:51 | disposition home or self-care (01) ==
LOC: MICIMG 12:52
PROVIDERS: PCP Family Medicine; Visit Provider Student in an Organized Health Care Education/Training Program
DX: M40.204 Unspecified kyphosis, thoracic region (principal); S22.000A Wedge compression fracture of unspecified thoracic vertebra, initial encounter for closed fracture; M51.34 Other intervertebral disc degeneration, thoracic region; M47.816 Spondylosis without myelopathy or radiculopathy, lumbar region; M50.322 Other cervical disc degeneration at C5-C6 level
CPT/HCPCS: 72040; 72070; 72100

== ENCOUNTER 2025-02-22 10:08 | Outpatient (CLI) | payer MEDICARE, OTHER, SELFPAY ==
--- NOTE | ~2025-02-22 | DEXA_ITS ---
Bone Density Report Name: WILLIAM NUNEZ Age: 69 Sex: Female Ethnicity: White Date of : 1955 Indication: postmenopausal; screening for osteoporosis; height loss; Referring Provider: JUAN POLO Study: Bone densitometry was performed. Exam Date: February 22, 2025 Accession number: [id number] Bone Density: Region BMD T-score Z-score Classification AP Spine(L1-L4) 0.923 -1.1 0.8 Osteopenia Femoral Neck (Left) 0.596 -2.3 -0.6 Osteopenia Total Hip (Left) 0.774 -1.4 0.0 Osteopenia Femoral Neck (Right) 0.651 -1.8 -0.1 Osteopenia Total Hip (Right) 0.807 -1.1 0.2 Osteopenia Total Hip Mean 0.790 -1.3 0.1 Osteopenia World Health Organization criteria for BMD impression classify patients as: Normal (T-score at or above -1.0), Osteopenia (T-score between -1.0 and -2.5), or Osteoporosis (T-score at or below -2.5). 10-year Fracture Risk(1): Major Osteoporotic Fracture 12% Hip Fracture 2.1% Reported Risk Factors: [place] (), Neck BMD=0.596, BMI=34.3 (1) FRAX(R) Version 3.08. Fracture probability calculated for an untreated patient. Fracture probability may be lower if the patient has received treatment. Clinical Information Provided by Patient: Has used the following medications: Calcium Patient maximum height was 61 Menopause Age: 57 No regular weight bearing exercise Drinks caffeinated beverages Onset of menses at age 16 Number of children 2 Impression: The patient has low bone mass, based on the Left Femoral Neck T-score. The patient has an estimated ten-year risk of hip fracture of 2.1% and an estimated ten-year risk of major fracture of 12%, based on the WHO FRAX algorithm. Discussion: BONE DENSITY IS LOW AT ONE OR MORE SKELETAL SITES. This patient's lowest T-score is low at one or more skeletal sites. It meets the World Health Organization's (WHO) criteria for ?low bone mass? (T-score between -1.0 and -2.5). The patient's 10-year risk of fracture as calculated by FRAX is less than the threshold where pharmacological therapy is recommended by the National Osteoporosis Foundation (NOF). However, all treatment decisions require clinical judgment and consideration of individual patient factors, including patient preferences, comorbidities, previous drug use, risk factors not captured in the FRAX model (e.g., frailty, falls, vitamin D deficiency, increased bone turnover, interval significant decline in bone density) and possible under or overestimation of fracture risk by FRAX. The patient should follow a healthful lifestyle (good nutrition with adequate calcium and vitamin D, and appropriate weight-bearing exercise). Follow-Up: Consider repeating this study in 2 to 3 years to reassess this patient's status, or sooner if there is some new clinical indication. Reported by: ALBER on 02/22/2025 10:47:00 AM. Reviewed, dictated and finalized at location A.
== END 2025-02-22 10:09 | disposition home or self-care (01) ==
LOC: MICIMG 10:09
PROVIDERS: PCP Family Medicine; Visit Provider Family Medicine
DX: Z78.0 Asymptomatic menopausal state (principal); M85.88 Other specified disorders of bone density and structure, other site; M85.852 Other specified disorders of bone density and structure, left thigh; M85.851 Other specified disorders of bone density and structure, right thigh
CPT/HCPCS: 77080